=== PATIENT | female | born 1990 | race Caucasian/White ===

== ENCOUNTER 2016-07-30 20:40 | Inpatient (IN) | payer OTHER ==
[~2016-07-30] VITALS: Ht 160 cm; Wt 64.9 kg
[~2016-07-30 20:40] MED LIST: HYDR-4003 PO; IBUP-1827 PO; PREN-56 PO
[2016-07-30] MEDS ORDERED: Sodium Chloride LOK Flush 10 mL Syringe IVFLUSH PRN (21:40)
[2016-07-30] MEDS ORDERED: Methylergonovine 0.2 mg/mL Inj IM PRN (21:40)
[2016-07-30] MEDS ORDERED: Oxytocin 10 Unit/mL Inj IM PRN (21:40)
[2016-07-30] MEDS ORDERED: Hemorrhage Kit, Post Partum XX ONE (21:40)
[2016-07-30] MEDS ORDERED: fentaNYL-PF 50 mCg/mL 2 mL Inj IVPUSH PRN (21:40)
[2016-07-30] MEDS ORDERED: Carboprost 250 mCg/mL Inj IM PRN (21:40)
[2016-07-30] MEDS ORDERED: Oxytocin 30 Units/500 mL LR 30 UNITS in IV Premix 1 EACH IV PRN (21:40)
[2016-07-30] MEDS: Lactated Ringer's 1,000 ML IV PRN ×2 (22:05→23:32)
[2016-07-30 22:19] LABS: Mean Corpuscular Hemoglobin 25.9 pg (27.0-35.0); Mean Corpuscular Volume 82.8 fL (81-100)
[2016-07-30] MEDS ORDERED: fentaNYL 2 mCg/mL-Bupivicaine 0.125% 100 mL Premix EPIDURAL ONE (23:55)
[2016-07-31] MEDS ORDERED: Atropine 1 mg/10 mL (Code) Syringe IVPUSH PRN (01:20)
[2016-07-31] MEDS ORDERED: EPHEDrine Sulfate 50 mg/mL Inj IVPUSH PRN (01:20)
[2016-07-31] MEDS ORDERED: Ondansetron 2 mg/mL 2 mL Inj IVPUSH PRN (01:20)
[2016-07-31] MEDS ORDERED: Lactated Ringer's 1,000 ML IV SCH ×2 (01:20→02:06)
[2016-07-31] MEDS ORDERED: fentaNYL 2 mCg/mL-Bupiv 0.125% 100 ML EPIDURAL SCH (01:20)
[2016-07-31] MEDS ORDERED: Lactated Ringer's 500 ML IV ONE (01:20)
--- NOTE | 2016-07-31 01:21 | PCM.HPANE ---
Patient Data Date of Service: Jul 30, 2016 Surgeon Admitting Provider:Magno Ortiz MD Attending Provider:Magno Ortiz MD Primary Care Physician:Ziggy Weiss MD Other Provider: Reason for Visit Term Labor TERM LABOR Ht/WT & BMI Body Mass Index Allergies Coded Allergies: No Known Allergies (Unverified , 08/10/15) Diabetes History Hx Diabetes?: No MRSA MRSA: No Medications Active Scripts Hydrocodone-Acetaminophen 5-325 mg 1 Each Tablet1 Tablet PO Q12H PRN for severe pain #10 TABLET Prov:Leni Hicks MD 08/12/15 Ibuprofen 600 Mg [id number] Mg PO Q6H PRN For Mild Pain #30 TABLET Prov:Leni Hicks MD 08/12/15 Reported Medications Qtm489/Iron Fumarate/FA/Dss ( 19 Tablet)1 Each Tablet1 Each PO 08/10/15 History History of ENT Problems?: No Hx of Heart Problems?: No Hx of Respiratory Problem?: No Hx Neurologic Problems?: No Hx of GI Problems?: No Hx of Problems?: No Female Hx: Positive for:: Endometriosis Hx Musculoskeletal Problems?: No Hx of Psycho/Social Problems?: No Hx Surgeries?: No Hx Any Other Health Problems?: No Hx Diabetes: No Hx Alcohol Use: NoHx Substance Use: No Smoking Status: Never Smoker Stop/Bang Treated for Sleep Apnea?: No Do You Have a CPAP Machine?: No S-Snoring: Do You Snore Loudly: No T-Tired: feel tired, fatigued: No O-Obsered: Observed not breath: No P-Blood Pressure: treated: No B- Body Mass Index > 35 kg/m2: No A- Age over 50: No N- Neck Large Circumference: No G- Gender Male: No RADHA Risk Assessment: Low Risk, <3 Yes Risk Assessment Category Category 1A: Patient has history of documented sleep apnea, and HAS NOT received any narcotic, sedative or anesthesia administration during this stay. Category 1B: Patient has history of documented sleep apnea, and HAS received any narcotic , sedative or anesthesia administration during this stay Category 2: Patient has SUSPECTED Obstructive Sleep Apnea, and HAS received any narcotic , sedative or anesthesia administration during this stay. Category 3: Patient has SUSPECTED Obstructive Sleep Apnea and HAS NOT received narcotic, sedative or anesthesia administration during this stay. Category 4: Outpatient in Procedural Areas with known sleep apnea or who screen positive for High Risk via the STOP/BANG questionnaire. Exam Exam General Appearance: Alert, Oriented X3, Cooperative, No Acute Distress HEENT/AIRWAY: MP 2 Lungs: Clear to Auscultation, Normal Air Movement Heart: Exam Unremarkable, Regular Rate/Rhythm, No Murmurs/Rubs/Gallops Meds/Labs/Diagnostics Labs Test 07/30/16 22:00 White Blood Count 11.6th/mm3 (3.8-10.1) Red Blood Count 4.13mil/mm3 (3.90-5.20) Hemoglobin 10.7g/dL (12.0-15.6) Hematocrit 34.2% (35.0-46.0) Mean Corpuscular Volume 82.8fL (81-100) Mean Corpuscular Hemoglobin 25.9pg (27.0-35.0) Mean Corpuscular Hemoglobin Concent 31.3% (32.0-37.0) Red Cell Distribution Width 15.5% (12.3-15.4) Platelet Count 205bil/L (150-400) Plan Impression Patient chart reviewed, patient interviewed and anesthestic plan with risks, benefits, and alternatives discussed, and informed consent obtained. ASA Physical Status: ASA1 Normal Healthy Anesthetic Plan: Epidural Bene/Risks/Altern/Consents: Yes HP Complete Prior to Induction: Yes Phani Soler MD Jul 31, 2016 01:20
--- NOTE | 2016-07-31 01:26 | HP ---
[address] [address] HISTORY AND PHYSICAL PATIENT: DURGA HILLMAN : 1990 MR#: [id number] ADMIT: 07/30/2016 JOB ID: [id number] ADMISSION DIAGNOSIS: Active labor at term. HISTORY OF PRESENT ILLNESS: The patient is a 26-year-old 2, para 1-0-0-1, at 40 weeks gestational age by LMP, confirmed by eight week ultrasound, admitted for active labor. Denied any leakage of fluid, vaginal bleeding. Reports movements. has been complicated with a history of IUGR with a prior that was managed by induction of labor at 37 weeks. PAST OBSTETRICAL HISTORY: In July 2015, IUGR, ended with induction of labor at 37 weeks and spontaneous vaginal delivery, and the current . PAST GYNECOLOGIC HISTORY: No history of abnormal Pap smears. No history of STDs. PAST MEDICAL HISTORY: Heartburn. PAST SURGICAL HISTORY: None. ALLERGIES: No known drug allergies. MEDICATIONS: vitamins and antacids. ALLERGIES: No known drug allergies. SOCIAL HISTORY: Denied any alcohol consumption. Denied any drugs of abuse. Denied any cigarette smoking. LABORATORIES: O-positive, antibody negative, rubella immune, serology nonreactive, hepatitis B surface antigen negative. HIV nonreactive. GC and Chlamydia cultures negative. Urine cultures negative. GBS cultures negative. PHYSICAL EXAMINATION: Patient is alert, oriented x3. Vital signs are 123/82 for blood pressure. Respirations are 18. Pulse is 78. Temperature 36.6 degrees centigrade. Heart: Regular rate and rhythm. Positive S1, S2. Lungs: Clear to auscultation bilaterally. Abdomen: Gravid uterus, nontender. Positive bowel sounds. Lower extremities: No calf tenderness appreciated bilaterally. Cervical exam by OB nurse is 9 cm dilated cervix, 100% effaced, -1 station. heart tracing is showing baseline of 130 beats per minute, positive accelerations, no decelerations, moderate variability, reactive tracing. ASSESSMENT AND PLAN: Patient is 26 years old 2, para 1-0-0-1, at 40 weeks with active labor: 1- Requested epidural analgesia. 2-GBS culture is negative. 3-Category 1 heart tracing. 4- Expectant management for labor. All of the above discussed in details with the patient, who agreed to the plan. [facility]
[2016-07-31] MEDS ORDERED: Carboprost 250 mCg/mL Inj IM PRN (02:10)
[2016-07-31] MEDS ORDERED: Hemorrhage Kit, Post Partum XX ONE (02:10)
[2016-07-31] MEDS ORDERED: Benzocaine (Dermoplast) 20% 60 Gm Spray TOPICAL PRN (02:10)
[2016-07-31] MEDS ORDERED: LANOlin HPA 7 Gm Ointment TOPICAL PRN (02:10)
[2016-07-31] MEDS ORDERED: Oxytocin 30 Units/500 mL LR 30 UNITS in IV Premix 1 EACH IV PRN (02:10)
[2016-07-31] MEDS ORDERED: Oxytocin 10 Unit/mL Inj IM PRN (02:10)
[2016-07-31] MEDS ORDERED: Methylergonovine 0.2 mg/mL Inj IM PRN (02:10)
[2016-07-31] MEDS: Witch Hazel-Glycerin Pads TOPICAL PRN ×2 (03:08→17:23)
--- NOTE | 2016-07-31 04:22 | OP ---
[address] [address] OPERATIVE REPORT PATIENT: DURGA HILLMAN : 1990 MR#: [id number] ADMIT: 07/30/2016 JOB ID: [id number] DATE OF SURGERY: 07/31/2016 PREOPERATIVE DIAGNOSIS(ES): A 26-year-old, 2, para 1-0-0-1, at 40 weeks and 1 day gestational age by LMP, confirmed by 8-week ultrasound, admitted for active labor. Progressed to fully dilated, +3 station. POSTOPERATIVE DIAGNOSIS(ES): A 26-year-old, 2, para 1-0-0-1, at 40 weeks and 1 day gestational age by LMP, confirmed by 8-week ultrasound, admitted for active labor. Progressed to fully dilated, +3 station. PROCEDURE: Spontaneous vaginal delivery. SURGEON: Timothy Coffman MD ANESTHESIA: Epidural. ESTIMATED BLOOD LOSS: 200 cc. COMPLICATIONS: None. FINDINGS: Single viable female with Apgars 9/9, weight of 33 97 g. DESCRIPTION OF PROCEDURE: The patient started to push efficiently. Infant head delivered in left occiput anterior position, followed by a loose cord around the anterior shoulder that shoulder delivered through it, as well as the rest of the body. Delayed cord clamping allowed for 60 seconds. Cord clamped and cut. Infant was placed over mom's chest. Placenta followed spontaneously. Upon inspection, it was noted to be intact with marginal insertion of a 3-vessel cord. Firm uterine fundus at the end of delivery. No blood clots retrieved. Inspection of the perineum revealed a 2nd-degree perineal laceration. It was repaired in a two layer fashion with 2-0 Vicryl suture. Good hemostasis was assured. The patient tolerated the procedure well. Sponge, needle, and instrument counts correct x2. Mom and baby recovering in a stable condition in the Labor and Delivery room. Dr. Coffman was present and scrubbed for the entire procedure. [facility]
--- NOTE | 2016-07-31 07:46 | PCM.PNOBPP ---
Subjective Date of Service Jul 31, 2016 Post : Spontaneous Vaginal Delivery Subjective A 26-year-old, 2, para 2 with complicated with a history of IUGR with a prior that had induction of labor at 37 weeks day zero status post spontaneous vaginal delivery. Patient sustained a 2nd- degree perineal laceration which was repaired and has had good hemostasis. Pain is mild and controlled with ibuprofen. She has had moderate lochia and has been able to urinate without difficulty. Passing flatus but no bowel movements. Breast feeding initiated. Patient would like Mirena for contraception. Labs Varicella immune Group B Strep Results: Negative Rubella: Immune Blood Type: O RH Type: Positive Labs Laboratory Tests 07/30/16 22:00: White Blood Count 11.6, Red Blood Count 4.13, Hemoglobin 10.7, Hematocrit 34.2, Mean Corpuscular Volume 82.8, Mean Corpuscular Hemoglobin 25.9, Mean Corpuscular Hemoglobin Concent 31.3, Red Cell Distribution Width 15.5, Platelet Count 205 Exam Vital Signs Vital Signs: VS reviewed, stable Exam Abdomen: Uterus is, Fundus firm, Abdomen soft, Abdomen appropriately tender Perineum: Laceration : UOP has been, Voiding without difficulty Extremities: No tenderness/swelling Lungs: Clear to Auscultation Heart: Regular Rate/Rhythm, Normal S1, Normal S2, No Murmurs/Rubs/Gallops General: Alert, Oriented X3, Cooperative, No Acute Distress OB Post Assessment/Plan Assessment A 26-year-old, 2, para 2 with complicated with a history of IUGR with a prior that had induction of labor at 37 weeks day zero status post spontaneous vaginal delivery. Pain Evaluation: Adequate Pain Control Post plan: Continue routine post care, Discharge home tomorrow Plan: 1. She is doing well and meeting all goals. Will continue routine care at this time. 2. Contraception requested with Mirena. Will plan to place at outpatient followup appointment. MIRLANDE GREGORY DO Jul 31, 2016 06:49
[2016-07-31] MEDS ORDERED: Ascorbic Acid 500 mg Tablet PO SCH (08:00)
[2016-07-31] MEDS ORDERED: Sodium Chloride LOK Flush 10 mL Syringe IVFLUSH SCH (08:30)
[2016-07-31] MEDS: oxyCODONE-Acetamin 5-325 mg Tablet PO PRN ×3 (08:45→17:30)
--- NOTE | 2016-07-31 17:54 | PCM.DIMED ---
Discharge Instructions Date of Service Jul 31, 2016 Dates of Hospitalization Jul 30, 2016 at 21:14 Diet No restrictions Activity No restrictions Call your provider Fever or Chills Patient Instructions Follow-up with PCP in: 6 weeks Magno Ortiz MD Jul 31, 2016 17:54
[2016-07-31] MEDS ORDERED: OXYC1TAB24 PO (18:02)
[2016-07-31] MEDS ORDERED: DOCU-41 PO (18:02)
[2016-07-31] MEDS ORDERED: IBUP-1827 PO (18:03)
[2016-07-31 18:08] VITALS: BP 119/65; PULSE 61; RESP 16
--- NOTE | 2016-08-01 00:29 | DIS ---
[address] [address] DISCHARGE SUMMARY PATIENT: DURGA HILLMAN : 1990 MR#: [id number] ADMIT: 07/30/2016 JOB ID: [id number] DIS: 07/31/2016 ADMITTING DIAGNOSIS: A 26-year-old, 2, para 1, at 40 weeks and 1 day gestational age, in active labor. DISCHARGE DIAGNOSIS: A 26-year-old, 2, para 2, status post spontaneous vaginal delivery at term. HOSPITAL COURSE: The patient is a 26-year-old, 2, para 2 now, who came to Labor and Delivery in the evening of July 30, 2016, complaining of contractions. She was kwasi every 2-3 minutes and heart rate tracing was reactive, category 1. On exam, she was 4-5 cm dilated, 80% effaced, -2 station. She was admitted for delivery. The patient spontaneously progressed to full dilation and underwent spontaneous vaginal delivery at one o'clock in the morning of July 31, 2016. Delivered female with Apgars 9 at one minute and 9 at five minutes. Weight 3397 g. The patient had a second-degree perineal laceration that was repaired with 2-0 Vicryl suture. On postoperative day one, the patient was stable, afebrile, bleeding stopped completely, she was breast-feeding well. The pain was controlled with Motrin p.r.n. and Percocet p.r.n. for breakthrough pain. There were no problems with breast-feeding. The patient was discharged home on day one, July 31, 2016, in stable condition with all discharge criteria met. She received discharge medications includin. Percocet 5/325 mg 1 tab p.o. q.6 h. p.r.n. for pain. 2. Motrin 600 mg p.o. t.i.d. p.r.n. for pain. 3. Colace 100 mg p.o. b.i.d. p.r.n. for constipation. A followup visit in the clinic is scheduled in six weeks.
== END 2016-07-31 18:15 | disposition home or self-care (01) | DRG 775 ==
LOC: FBCO 20:40 → FBC 21:14
PROVIDERS: ADMIT Legal Medicine; ATTEND Legal Medicine
PROC: 10E0XZZ Delivery of Products of Conception, External Approach (ICD-10-PCS; principal; 2016-07-31)
PROC: 0KQM0ZZ Repair Perineum Muscle, Open Approach (ICD-10-PCS; 2016-07-31)
DX: O70.1 Second degree perineal laceration during delivery (principal); Z37.0 Single live birth; O69.82X0 Labor and delivery complicated by other cord entanglement, without compression, not applicable or unspecified; Z3A.40 40 weeks gestation of pregnancy